=== PATIENT | female | born 1985 | race Asian ===

== ENCOUNTER 2019-07-14 08:27 | Outpatient (CLI) | payer MEDICAID | END 2019-07-14 23:59 | disposition home or self-care (01) | LOC: RAD 08:27 | PROVIDERS: ATTEND Physician Assistant Medical | DX: N83.202 Unspecified ovarian cyst, left side (principal) | CPT/HCPCS: 76830; 76856 ==

== ENCOUNTER 2022-08-06 11:41 | Outpatient (CLI) | payer MEDICAID | END 2022-08-06 23:59 | disposition home or self-care (01) | LOC: VAS 11:41 | PROVIDERS: ATTEND Physician Assistant | DX: M79.662 Pain in left lower leg (principal) | CPT/HCPCS: 93971 ==